=== PATIENT | female | born 1995 | race Native Hawaiian/Other Pacific Islander ===

== ENCOUNTER 2017-11-11 22:26 | Emergency (ER) | payer OTHER ==
[~2017-11-11] VITALS: Ht 165.1 cm; Wt 74.8 kg
[2017-11-12 00:26] LABS: PLATELET COUNT 242 K/uL (152-353)
[2017-11-12 00:53] LABS: POTASSIUM 3.5 mmol/L (3.6-5.2)
[2017-11-12 02:13] VITALS: BP 110/88; TEMP 98.5
== END 2017-11-12 02:15 | disposition home or self-care (01) ==
LOC: ED 22:26
PROVIDERS: Family Medicine
DX: R14.0 Abdominal distension (gaseous) (principal); K29.70 Gastritis, unspecified, without bleeding
CPT/HCPCS: 36415; 74022; 80053; 81000; 81025; 85027; 99283

== ENCOUNTER 2021-08-14 15:56 | Outpatient (CLI) | payer OTHER ==
[2021-08-14 16:23] LABS: PLATELET COUNT 284 K/uL (152-353)
[2021-08-14 17:02] LABS: POTASSIUM 4.2 mmol/L (3.6-5.2)
== END 2021-08-14 19:18 | disposition home or self-care (01) ==
LOC: LABW 15:56
PROVIDERS: ATTEND Family Medicine
DX: N93.9 Abnormal uterine and vaginal bleeding, unspecified (principal); Z86.2 Personal history of diseases of the blood and blood-forming organs and certain disorders involving the immune mechanism; R53.83 Other fatigue; Z83.3 Family history of diabetes mellitus; F41.9 Anxiety disorder, unspecified; R63.5 Abnormal weight gain; Z09 Encounter for follow-up examination after completed treatment for conditions other than malignant neoplasm
CPT/HCPCS: 36415; 80053; 80061; 81000; 82728; 83540; 83550; 84439; 84443; 85027